=== PATIENT | male | born 1965 | race Caucasian/White ===

== ENCOUNTER 2019-02-02 09:56 | Emergency (ER) | payer OTHER ==
[2019-02-02 10:06] VITALS: BP 117/80; PULSE 67; RESP 16; TEMP 98
--- NOTE | 2019-02-02 10:33 | ED ---
General Adult HPI - General Chief complaint: Extremity Injury, Upper Stated complaint: left arm numbness Time Seen by Provider: 02/02/19 10:12 Source: patient, RN notes reviewed, old records reviewed Mode of arrival: ambulatory Limitations: no limitations - History of Present Illness Initial comments: 54-year-old male patient presents ED chief complaint of left arm paresthesias. Patient reports that for approximately 3 months he has had pain in his left shoulder region. 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 Patient force that he has been following up with a chiropractor who believed that they're improving the shoulder. Patient ports that he has pain at baseline. Patient reports that he has difficulty with overhead left arm movements and must use his right arm to help make that his left arm due to pain in his shoulder. Patient presented to Hospital today because while in shower he began to have paresthesias down his left arm. Patient reports a still has gross sensation. Patient denies any facial droop, denies any unilateral weakness. Patient denies any headache or changes in vision chest pain or shortness of breath. Patient states that the only new symptom is experiencing is the numbness and tingling in his left arm. Systemic: Pt denies fatigue, fever/chills, rash. Pt denies weakness, night sweats, weight loss. Neuro: Pt denies headache, visual disturbances, syncope or pre-syncope. HEENT: Pt denies ocular discharge or irritation, otalgia, rhinorrhea, pharyngitis or notable lymphadenopathy. Cardiopulmonary: Pt denies chest pain, SOB, heart palpitations, dyspnea on exertion. Abdominal/GI: Pt denies abdominal pain, n/v/d. : Pt denies dysuria, burning w/ urination, frequency/urgency. Denies new onset urinary or bowel incontinence. MSK: Pt denies myalgia, loss of strength or function in extremities. Neuro: Pt denies new onset weakness,. - Related Data Home Medications Medication Instructions Recorded Confirmed Aspirin/Acetaminophen/Caffeine 1 tab PO ONCE 02/02/19 02/02/19 [Excedrin Migraine Caplet] Cetirizine HCl [Zyrtec] 10 mg PO DAILY 02/02/19 02/02/19 Lisinopril [Zestril] 10 mg PO DAILY 02/02/19 02/02/19 rOPINIRole HCL 0.5 mg PO HS PRN 02/02/19 02/02/19 Allergies Allergy/AdvReac Type Severity Reaction Status Date / Time No Known Allergies Allergy Verified 02/02/19 10:25 Review of Systems ROS Statement: Those systems with pertinent positive or pertinent negative responses have been documented in the HPI. ROS Other: All systems not noted in ROS Statement are negative. Past Medical History Past Medical History: Hypertension History of Any Multi-Drug Resistant Organisms: None Reported Past Surgical History: Hernia Repair Past Psychological History: No Psychological Hx Reported Smoking Status: Never smoker Past Alcohol Use History: None Reported Past Drug Use History: None Reported General Exam - General Exam Comments Initial Comments: Constitutional: NAD, AOX3, Pt has pleasant affect. HEENT: NC/AT, trachea midline, neck supple, no lymphadenopathy. Posterior pharynx non erythematous, without exudates. External ears appear normal, without discharge. Mucous membranes moist. Eyes PERRLA, EOM intact. There is no scleral icterus. No pallor noted. Cardiopulmonary: RRR, no murmurs, rubs or gallops, no JVD noted. Lungs CTAB in anterior and posterior vallecillo. No peripheral edema. Abdominal exam: Abdomen soft and non-distended. Abdomen non-tender to palpation in all 4 quadrants. Bowel sounds active in LLQ. No hepatosplenomegaly. No ecchymosis Neuro: CN II-XII intact. No nuchal rigidity. No raccon eyes, no rubio sign, no hemotympanum. No cervical spinal tenderness. NIH 0. MSK: Painful arc positive, he can test positive left arm. Sensation intact left arm. Pulses intact. Pulses intact with overhead arm movement. Shoulder nontender to palpation.. No skin changes. No posterior calf tenderness bilaterally, homans sign negative bilaterally. Posterior tibialis and radial pulse +2 bilaterally. Sensation intact in upper and lower extremities. Full active ROM in upper and lower extremities, 5/5 stregnth. Limitations: no limitations Course Vital Signs 02/02/19 10:01 Temperature 98.0 F Pulse Rate 67 Respiratory 16 Rate Blood Pressure 117/80 O2 Sat by Pulse 99 Oximetry Medical Decision Making - Medical Decision Making 54-year-old male patient presents ED chief complaint of left arm paresthesias. Patient reports that for approximately 3 months he has had pain in his left shoulder region. 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 Patient force that he has been following up with a chiropractor who believed that they're improving the shoulder. Patient ports that he has pain at baseline. Patient reports that he has difficulty with overhead left arm movements and must use his right arm to help make that his left arm due to pain in his shoulder. Patient presented to Hospital today because while in shower he began to have paresthesias down his left arm. Patient reports a still has gross sensation. Patient denies any fa cial droop, denies any unilateral weakness. Patient denies any headache or changes in vision chest pain or shortness of breath. Patient states that the only new symptom is experiencing is the numbness and tingling in his left arm. Patient also in several, afebrile. Physical exam displayed: Painful arc positive, he can test positive left arm. Sensation intact left arm. Pulses intact. Pulses intact with overhead arm movement. No skin changes. Plain film left shoulder displayed no acute fracture dislocation. [id number] narrowing acromioclavicular joint. Patient discharged orthopedic follow-up. Case discussed with Dr. Salmon. Disposition Clinical Impression: Shoulder pain, Arthropathy Disposition: HOME SELF-CARE Condition: Stable Instructions (If sedation given, give patient instructions): Shoulder Sprain (ED) Additional Instructions: Patient to adhere to previously discussed treatment plan and will take medication(s) as directed. Patient to follow up with PCP in 1-2 days. Patient to return to ED if symptoms do not improve. Follow up with orthopedic surgeon today, return to ER if condition worsens. Is patient prescribed a controlled substance at d/c from ED?: No Referrals: Blane Penaloza MD [Primary Care Provider] - 1-2 days Liban Lopez DO [Doctor of Osteopathic Medicine] - 1-2 days
--- NOTE | 2019-02-02 10:36 | XR ---
EXAMINATION TYPE: XR shoulder complete LT DATE OF EXAM: 02/02/2019 CLINICAL HISTORY: Loss of strength after acute onset numbness per patient. Pain per ER order. TECHNIQUE: Three views of the left shoulder are obtained. COMPARISON: None. FINDINGS: There is no acute fracture/dislocation evident in the left shoulder. Mild to moderate narr owing most prominent in inferior aspect of the acromioclavicular joint. Glenohumeral joint is maintai pankaj. No significant spurring. Type II downsloping acromion is present. The visualized ribs are intac t and unremarkable. IMPRESSION: As above.
== END 2019-02-02 11:12 | disposition home or self-care (01) ==
LOC: EC 09:56
DX: M12.812 Other specific arthropathies, not elsewhere classified, left shoulder (principal); I10 Essential (primary) hypertension; Z79.82 Long term (current) use of aspirin; Z79.899 Other long term (current) drug therapy
CPT/HCPCS: 99284

== ENCOUNTER → 2019-02-06 | Outpatient (CLI) | payer OTHER ==
--- NOTE | 2019-02-06 14:48 | XR ---
Orbits for foreign body HISTORY: MRI clearance, history of metal in eyes 3 views of the orbits No radiopaque foreign body present within the orbits. Bone mineralization is normal. Paranasal sinuse s are well aerated. IMPRESSION: No radiographic foreign body evident within the orbits.
== END | disposition home or self-care (01) ==
LOC: RADXRMAIN 10:50
PROVIDERS: ATTEND Orthopaedic Surgery
DX: Z01.818 Encounter for other preprocedural examination (principal); Z87.821 Personal history of retained foreign body fully removed
CPT/HCPCS: 70030

== ENCOUNTER → 2023-03-23 | Outpatient (CLI) | payer OTHER ==
[2023-03-23 16:17] LABS: Basophils # (A) 0.03 X 10*3/uL (0.00-0.10); Basophils % (A) 0.5 %; Eosinophils # (A) 0.09 X 10*3/uL (0.04-0.35); Eosinophils % (A) 1.6 %; HCT 40.3 % (39.6-50.0); HGB 13.6 d/dL (13.0-17.0); Lymphocytes # (A) 1.48 X 10*3/uL (0.90-5.00); Lymphocytes % (A) 26.6 %; MCH 31.6 pg (27.0-32.0); MCHC 33.7 d/dL (32.0-37.0); MCV 93.7 FL (80.0-97.0); Mean Platelet Volume 10.2 FL (9.5-12.2); Monocytes # (A) 0.58 X 10*3/uL (0.20-1.00); Monocytes % (A) 10.4 %; NRBC Per 100 WBC 0 X 10*3/uL (0.00-0.01); Neutrophils # (A) 3.37 X 10*3/uL (1.80-7.70); Neutrophils % (A) 60.5 %; Platelet Count 364 X 10*3/uL (140-440); RDW 12.2 % (11.5-14.5); WBC 5.57 X 10*3/uL (4.50-10.00)
[2023-03-23 16:38] LABS: ALT 26 U/L (10-49); AST 19 U/L (14-35); Albumin 4.4 d/dL (3.8-4.9); Albumin/Globulin Ratio 1.83 Ratio (1.60-3.17); Alkaline Phosphatase 62 U/L (41-126); Calcium 9.7 mg/dL (8.7-10.3); Carbon Dioxide 26.6 mmol/L (21.6-31.8); Chloride 102 mmol/L (96-109); Globulin 2.4 d/dL (1.6-3.3); Glucose 101 mg/dL (70-110); LDL Cholesterol,Calculated 100.9 mg/dL (0.0-131.0); Potassium 3.9 mmol/L (3.5-5.5); Sodium 141 mmol/L (135-145); Total Bilirubin 0.6 mg/dL (0.3-1.2); Total Protein 6.8 d/dL (6.2-8.2); VLDL Calculation 15.64 mg/dL (5.00-40.00)
[2023-03-23 16:39] LABS: PSA Annual Screen 0.999 ng/mL (0.000-4.000)
== END | disposition home or self-care (01) ==
LOC: LABWHC1 08:56
PROVIDERS: ATTEND Family Medicine
DX: Z00.00 Encounter for general adult medical examination without abnormal findings (principal); Z12.5 Encounter for screening for malignant neoplasm of prostate
CPT/HCPCS: 80061; 80053; 85025; 82306; 36415; G0103

== ENCOUNTER 2024-05-04 02:36 | Emergency (ER) | payer OTHER ==
[2024-05-04 02:43] VITALS: TEMP 97.8
--- NOTE | 2024-05-04 02:51 | ED ---
General Adult HPI - General Chief complaint: Fall Stated complaint: Fall Time Seen by Provider: 05/04/24 02:51 Source: patient, EMS Mode of arrival: EMS Limitations: no limitations - History of Present Illness Initial comments: Sid is a pleasant 59 yo man who presents to the ER via ambulance for evaluation of back pain and left ankle pain. Patient reports he has dealt with intermittent back pain for a number of years he follows with a chiropractor however for the past 3 to 4 days he has had more severe pain and has shooting pain that radiates down the left leg causes his leg to kind to give out from under him. Patient states that he saw chiropractor he was resting Tuesday he was doing well but when he went to stand up had severe pain in his left leg gave out from under him when he fell to the ground resulting in injury to his left ankle. Patient states his foot was completely twisted and he knows something must be broken. Patient's placed his foot in a walking boot for stabilization and he was brought to the ER by ambulance. Patient denies any recent falls or injury prior to this fall. Denies any heavy lifting or injury that would have caused the acute worsening of his back pain. No fever no constitutional symptoms, no loss of bowel or bladder continence no retention. No IV drug use. - Related Data Home Medications Medication Instructions Recorded Confirmed Aspirin/Acetaminophen/Caffeine 1 tab PO ONCE 02/02/19 02/02/19 [Excedrin Migraine Caplet] Cetirizine HCl [Zyrtec] 10 mg PO DAILY 02/02/19 02/02/19 lisinopriL [Zestril] 10 mg PO DAILY 02/02/19 02/02/19 rOPINIRole HCL 0.5 mg PO HS PRN 02/02/19 02/02/19 Previous Rx's Medication Instructions Recorded HYDROcodone/APAP 5-325MG [Sultana 1 tab PO Q6HR PRN #20 tab 05/04/24 5-325] Sennosides/Docusate Sodium [Senna 1 each PO BID #30 capsule 05/04/24 Plus 8.6-50 mg Softgel] Allergies Allergy/AdvReac Type Severity Reaction Status Date / Time No Known Allergies Allergy Verified 05/04/24 02:37 Review of Systems ROS Statement: Those systems with pertinent positive or pertinent negative responses have been documented in the HPI. ROS Other: All systems not noted in ROS Statement are negative. Past Medical History Past Medical History: Hypertension History of Any Multi-Drug Resistant Organisms: None Reported Past Surgical History: Hernia Repair Past Psychological History: No Psychological Hx Reported Smoking Status: Unknown if ever smoked Past Alcohol Use History: None Reported Past Drug Use History: None Reported General Exam - General Exam Comments Initial Comments: Physical Exam GENERAL: Patient is well-developed and well-nourished. Patient is nontoxic and well-hydrated and is in no distress. HENT: Normocephalic, Atraumatic. EYES: PERRL, EOMI PULMONARY: Unlabored respirations. CARDIOVASCULAR: RRR Warm and well perfused extremities ABDOMEN: Non-distended SKIN: No rashes or bruising : Deferred NEUROLOGIC: Alert and oriented Normal speech MUSCULOSKELETAL: Swelling but no deformity of the left ankle, range of motion of the ankle limited by pain PSYCHIATRIC: No SI/HI Limitations: no limitations Course Vital Signs 05/04/24 05/04/24 02:37 05:42 Temperature 97.8 F 97.8 F Pulse Rate 61 74 Respiratory 16 17 Rate Blood Pressure 106/67 110/71 O2 Sat by Pulse 98 99 Oximetry Medical Decision Making - Medical Decision Making Was pt. sent in by a medical professional or institution (, PA, TRUST VAULT CUSTODIAN, urgent care, hospital, or fdc...) When possible be specific @ -No Did you speak to anyone other than the patient for history (EMS, parent, family, police, friend...)? What history was obtained from this source @ - Did you review nursing and triage notes (agree or disagree)? Why? @ -I reviewed and agree with nursing and triage notes Were old charts reviewed (outside hosp., previous admission, EMS record, old EKG, old radiological studies, urgent care reports/EKG's, fdc records)? Report findings @ -No old charts were reviewed Differential Diagnosis (chest pain, altered mental status, abdominal pain women, abdominal pain men, vaginal bleeding, weakness, fever, dyspnea, syncope, headache, dizziness, GI bleed, back pain, seizure, CVA, palpatations, mental health)? @ -Differential Back Pain: Strain, zoster, cauda equina syndrome, epidural abscess, vertebral osteomyelitis, discitis, fracture, subluxation, disc herniation, DJD, spinal stenosis, dissection, AAA, pancreatitis, peptic ulcer disease, pyelonephritis, kidney stone, this is not meant to be an all-inclusive list. EKG interpreted by me (3pts min.). @ -As above X-rays interpreted by me (1pt min.). @ -Distal fibula fracture no obvious dislocation CT interpreted by me (1pt min.). @ -No obvious fractures in the lumbar spine U/S interpreted by me (1pt. min.). @ -None done What testing was considered but not performed or refused? (CT, X-rays, U/S, labs)? Why? @ -None What meds were considered but not given or refused? Why? @ -None Did you discuss the management of the patient with other professionals (professionals i.e. , PA, TRUST VAULT CUSTODIAN, lab, RT, psych nurse, social services, marble installer, teacher, tactical deception plans officer, piano case and bench assembler)? Give summary @ -No Was smoking cessation discussed for >3mins.? @ -No Was critical care preformed (if so, how long)? @ -No Were there social determinants of health that impacted care today? How? (Homele ssness, low income, unemployed, alcoholism, drug addiction, transportation, low edu. Level, literacy, decrease access to med. care, shelter, rehab)? @ -No Was there de-escalation of care discussed even if they declined (Discuss DNR or withdrawal of care, Hospice)? DNR status @ -No What co-morbidities impacted this encounter? (DM, HTN, Smoking, COPD, CAD, Cancer, CVA, ARF, Chemo, Hep., AIDS, mental health diagnosis, sleep apnea, morbid obesity)? @ -None Was patient admitted / discharged? Hospital course, mention meds given and route, prescriptions, significant lab abnormalities, going to OR and other pertinent info. @ -Discharged Patient was seen and evaluated, history is obtained from the patient. Physical exam reveals a grossly swollen left ankle, given patient's history of back pain with sciatic like symptoms CT scan of the spine and x-ray of the ankle were ordered. CT scan shows some disc protrusion at L5-S1. There is no acute findings that would require surgical intervention. Patient will be referred to spine surgery for follow-up. X-ray confirms a lateral malleoli are fracture. Discussed with patient options for splinting and a fiberglass splint versus using the boot that they have patient and would prefer the boot so this was placed back on the patient. He was treated with morphine for pain in the ER and discharged home with prescription for Sultana and referral to orthopedics. Undiagnosed new problem with uncertain prognosis? @ -No Drug Therapy requiring intensive monitoring for toxicity (Heparin, Nitro, Insulin, Cardizem)? @ -No Were any procedures done? @ -No Diagnosis/symptom? @ -Left ankle fracture, Acute, or Chronic, or Acute on Chronic? @ -Acute Uncomplicated (without systemic symptoms) or Complicated (systemic symptoms)? @ -Uncomplicated Side effects of treatment? @ -No Exacerbation, Progression, or Severe Exacerbation? @ -No Poses a threat to life or bodily function? How? (Chest pain, USA, NC, pneumonia, PE, COPD, DKA, ARF, appy, cholecystitis, CVA, Diverticulitis, Homicidal, Suicidal, threat to staff... and all critical care pts) @ -No Disposition Clinical Impression: Fracture of distal fibula Disposition: HOME SELF-CARE Condition: Stable Prescriptions: HYDROcodone/APAP 5-325MG [Sultana 5-325] 1 tab PO Q6HR PRN #20 tab PRN Reason: Pain Sennosides/Docusate Sodium [Senna Plus 8.6-50 mg Softgel] 1 each PO BID #30 capsule Is patient prescribed a controlled substance at d/c from ED?: No Referrals: None,Stated [REFERRING] - 1-2 days Gerhard Perez MD [STAFF PHYSICIAN] - 1-2 days Vega Stiles DO [Doctor of Osteopathic Medicine] - 1-2 days
[2024-05-04] MEDS: MORPHINE SULFATE 4 MG/ML SYRINGE IVP STA ×2 (03:29→05:18)
[2024-05-04] MEDS: ONDANSETRON 4 MG/2 ML VIAL IVP STA (03:30)
--- NOTE | 2024-05-04 03:58 | CT ---
EXAMINATION TYPE: CT lumbar spine wo con DATE OF EXAM: 05/04/2024 3:51 AM COMPARISON: None. CLINICAL INDICATION: Male, 59 years old with history of fall; [facility], Pt to ED via EMS after pt has sync opal episode after having a BM pt stood up from toilet and felt dizzy and fall onto ground, pt does r emember entire episode; no LOC, pt did not hit head, no blood thinners, pt reports he hit L ankle on side of toilet and pt endorses lower back pain but states that has not changed from pts back pain timothy t pt has been dealing with for the last few days. TECHNIQUE: Unenhanced CT of the lumbar spine was performed. Bone and soft tissue window settings are submitted as well as coronal and sagittal reconstructions. CT DLP: 675.[address] CTDI: 19 mGy Automated exposure control for dose reduction was used. FINDINGS: There are 5 lumbar type vertebra. Bilateral pars defect L5 level with grade 1 anterolisthes is L5 on S1 measured 7 mm lung posterior vertebral body margin. Moderate disc space narrowing at L5-S 1 level. Vertebral body heights disc space heights otherwise are maintained. No acute displaced fract ure in the lumbar spine. Limbus vertebrae anterior superior L4 level is seen. Spinal canal grossly pr eserved. Review of axial images shows no additional suspicious abnormality. Simple parapelvic cyst mid to lowe r pole level of the left kidney centrally are felt present. IMPRESSION: No acute displaced fracture in the lumbar spine. Bilateral pars defects with spondylolisthesis at the lumbosacral junction noted. [facility], , 05/04/2024 3:55 AM
--- NOTE | 2024-05-04 04:00 | XR ---
EXAMINATION TYPE: XR ankle complete LT DATE OF EXAM: 05/04/2024 3:55 AM COMPARISON: None. CLINICAL INDICATION: Male, 59 years old with history of fall, pain TECHNIQUE: Frontal, lateral and oblique images of the left ankle are obtained. FINDINGS: There is acute slightly displaced comminuted fracture through the lateral malleolus with m ild to moderate associated soft tissue swelling. Medial malleolus is intact. Ankle mortise symmetry i s preserved. IMPRESSION: As above. [facility], , 05/04/2024 3:58 AM
[2024-05-04] MEDS: ACET/COD 300 MG/30 MG STARTER PACK 6 TAB BTL PO STA (05:19)
[2024-05-04 05:43] VITALS: BP 110/71; PULSE 74; RESP 17
== END 2024-05-04 05:42 | disposition home or self-care (01) ==
LOC: EC 02:36
DX: S82.402A Unspecified fracture of shaft of left fibula, initial encounter for closed fracture (principal); W19.XXXA Unspecified fall, initial encounter
CPT/HCPCS: 73610; 72131; 99284; 96374; 96375; 96376; J2270; J2405

== ENCOUNTER → 2024-05-14 | Day surgery (SDC) | payer OTHER ==
[2024-05-11 10:54] VITALS: BMI 28.5
[~2024-05-14] MED LIST: HYDROmorphone (PF) 1 MG/ML ONE; HYDROmorphone 0.5 MG/0.5 ML SYRINGE IVP PRN; LIDOCAINE 1% (10MG/ML) FOR IV START INTRADERMA PRN; LIDOCAINE 1% INJ 10MG/ML (20 ML MDV) ONE; MIDAZOLAM 2 MG/2 ML VIAL ONE; PHENYLEPHRINE-0.9% NACL SYG 1,000 MCG/10 ML SYRINGE ONE; PROPOFOL 10 MG/ML 20 ML VIAL IV ONE; ROPIVACAINE 5 MG/ML 30 ML VIAL ONE; SODIUM CHLORIDE 0.9% (PF) 10 ML VIAL ONE; WATER FOR INJECTION, STERILE 10 ML VIAL IV ONE; droPERidol 5 MG/2 ML VIAL IVP ONE; ePHEDrine 50 MG/ML 1 ML VIAL ONE; fentaNYL (PF) 50 MCG/ML 2 ML AMP ONE
[2024-05-14] MEDS: IV FLUID CONTINUATION 1,000 ML IV ONE (14:53)
[2024-05-14] MEDS: DEXAMETHASONE SOD PHOSPHATE 4 MG/ML 1 ML VIAL IV ONE (15:29)
[2024-05-14] MEDS: ONDANSETRON 4 MG/2 ML VIAL IVP ONE (15:29)
[2024-05-14] MEDS: LACTATED RINGERS 1,000 ML IV SCH (15:30)
[2024-05-14] MEDS: MIDAZOLAM 2 MG/2 ML VIAL IV ONE (15:48)
--- NOTE | 2024-05-14 17:39 | P.ANPRN ---
Procedure Note - Anesthesia - Nerve Block Performed Left Popliteal Single Time Out Performed: Yes (1548) Date of Procedure: 05/14/24 Procedure Start Time: 15:49 Procedure Stop Time: 15:53 Location of Patient: PreOp Indication: Acute Post-Operative Pain, Requested by Surgeon Specifically requested for management of pain by DrBrayan: Edu Yarbrough Sedation Type: Sedate with meaningful contact maintained Preparation: Sterile Prep Position: Supine Catheter: None Needle Types: Pajunk Needle Gauge: 21 Ultrasound used to visualize needle placement: Yes Ultrasound used to observe medication spread: Yes Injectate: 0.5% Ropivacaine (see comment for volume) (15cc+10cc nacl pf) Blood Aspirated: No Pain Paresthesia on Injection Noted: No Resistance on Injection: Normal Image Stored and Saved: Yes Events: Uneventful and Well Tolerated
--- NOTE | 2024-05-14 17:40 | P.ANPRN ---
Procedure Note - Anesthesia - Nerve Block Performed Left Adductor Canal Single Time Out Performed: Yes (1548) Date of Procedure: 05/14/24 Procedure Start Time: 15:54 Procedure Stop Time: 15:57 Location of Patient: PreOp Indication: Acute Post-Operative Pain, Requested by Surgeon Specifically requested for management of pain by DrBrayan: Edu Yarbrough Sedation Type: Sedate with meaningful contact maintained Preparation: Sterile Prep Position: Supine Catheter: None Needle Types: Pajunk Needle Gauge: 21 Ultrasound used to visualize needle placement: Yes Ultrasound used to observe medication spread: Yes Injectate: 0.5% Ropivacaine (see comment for volume) (15cc+10cc nacl pf) Blood Aspirated: No Pain Paresthesia on Injection Noted: No Resistance on Injection: Normal Image Stored and Saved: Yes Events: Uneventful and Well Tolerated
[2024-05-14] MEDS: LACTATED RINGERS 1,000 ML IV ONE (17:50)
[2024-05-14] MEDS: ALBUTEROL NEBULIZED 2.5 MG/3 ML INHALATION STA (18:52)
--- NOTE | 2024-05-14 18:54 | P.OP ---
Date of Procedure: 05/14/24 Preoperative Diagnosis: Maisonneuve variant ankle fracture-dislocation Postoperative Diagnosis: Same Procedure(s) Performed: 1. Open reduction and internal fixation left lateral malleolus 2. Open reduction and internal fixation left ankle syndesmosis 3. Nonoperative management of left proximal fibula and posterior malleolus fracture 4. Manual application of joint stress for radiography by physician, left ankle 5. Application of short leg splint by physician, left ankle Anesthesia: YOUNG, regional Surgeon: Edu Yarbrough Cold Work Operator #1: Sp Dutton Estimated Blood Loss (ml): 25 IV fluids (ml): 800 Pathology: none sent Condition: stable Disposition: PACU Indications for Procedure: the patient is a very pleasant relatively healthy 59-year-old male who presented to my office with a left ankle injury. His x-rays showed a proximal fibula fracture, possible lateral malleolus fracture, posterior malleolus fracture and medial malleolus avulsion injury. Based on his injury films and x-rays in the office I recommended open reduction internal fixation. We discussed the potential risks and complications of ankle fracture surgery at length. Risks discussed included but are not limited to risks from anesthesia, superficial infection, deep infection, nonunion, malunion, malreduction of the ankle mortise or syndesmosis, damage to local blood vessels or nerves particularly branches of the superficial peroneal nerve, saphenous nerve, and or sural nerve, hardware failure, loss of reduction of the ankle mortise or syndesmosis due to hardware failure, symptomatic hardware, delayed wound healing, wound necrosis, po sttraumatic ankle arthritis, stiffness, instability, intra-articular pathology requiring further treatment, need for further surgery, an inability to regain preinjury level of function, dissatisfaction with surgical outcome, DVT, PE, pressure sore, splint complications, and possibly loss of life or limb. The patient understands that while these are the most common complications there are other less common complications possible. They provided their verbal and written consent to go forward with ankle open reduction and internal fixation. All of their questions regarding the procedure and potential complications were answered. Operative Findings: the patient had a displaced Guerrero B fibula fracture requiring open reduction internal fixation. Manual external rotation stress x-ray showed widening of the medial clear space. Description of Procedure: the patient was identified in preoperative holding and the correct left ankle was marked with my initials. I reviewed the consent form with the patient and his . All of their questions were answered. The patient was given a block by anesthesia. He was then brought back to the operating room. He was transferred onto the or table where general anesthetic and preoperative antibiotics were given. A tourniquet was applied to the proximal aspect of the left leg. A bump was placed under the left side of his body internally rotating the leg to neutral. The contralateral right leg was secured to the table with foam and tape. A ramp was placed under the left leg to facilitate imaging. A nonsterile occlusive drape was applied over the left leg. The left arm was draped over the body and secured with a pillow. A presurgical scrub was performed with a chlorhexidine scrub brush. At this point a timeout was performed identifying the correct patient, operative extremity, and procedure. C-arm was brought in and a manual external rotation stress x-ray showed obvious widening of the medial clear space. I interpreted this as a grossly unstable ankle fracture requiring surgery. The patient's left leg was then prepped and draped in the standard sterile fashion. The leg was then elevated, exsanguinated with an Esmarch bandage, and the tourniquet was inflated to 250 mmHg. I began by making a straight lateral incision to the fibula. Skin incision was made with a scalpel and dissection was carried down carefully with subcutaneous dissection using scissors. The superficial peroneal nerve was identified proximally in the incision carefully retracted. The periosteum and fascia over the peroneal muscles and fibula was sharply elevated. A displaced fibular fracture was then identified. The fracture was exposed and gently debrided to allow reduction. Once the fracture was fully visualized and debrided a reduction was performed using a combination of longitudinal traction and rotation followed by reduction and manipulation of the fracture with a [id number] reduction clamp. The fracture keyed in was anatomically reduced visually. Fluoroscopy verified the reduction. A 2.7 mm lag screw was then placed from anterior to posterior across the fracture generating excellent compression. The reduction clamp was removed and the fracture maintained its reduction. A precontoured fibular plate was then placed over the lateral aspect of the fibula and fluoroscopy was used to assess the length of the plate and position. The plate was then secured to the fibula with nonlocking 3.5 mm screws proximally and distally. The position of the plate was verified. An additional 2 nonlocking 3.5 mm screws were placed proximally followed by 2 locking screws distally. The syndesmosis and medial clear space was still unstable so to syndesmotic tight rope devices were placed. A counterincision was made medially to allow direct placement of the suture bonds against the tibia. Both tight ropes were placed under fluoroscopic guidance and sequentially tightened to reduce the syndesmosis. The tight ropes were then tied laterally and cut. Final fluoroscopic x-rays showed anatomic reduction of both the fibula fracture and ankle mortise. A manual external rotation stress x-ray showed no widening of the medial clear space. A true lateral was taken showing the talus concentrically reduced under the tibia. Both wounds were then thoroughly irrigated and closed in layers. I verified that all instrument, sponge, and sharp counts were correct. A sterile dressing consisting of Betadine soaked Adaptic, 4 x 4, and web roll was applied. A very well-padded bulky Craig splint was placed with the ankle at neutral. The patient was then awoken from his anesthetic, transferred from the OR table to a gurney, and brought to recovery having tolerated the procedure well. Sp Dutton PAC was required as a skilled pediatric physician assistant due to the complexity of surgery for patient positioning, draping, exposure, reduction of fracture, closure of wound and application of splint. PLAN: The patient is going to discharge home as an outpatient if he is comfortable. Strict NWB on the left leg. Crutches to ambulate. Pain medication and a stool softener will be sent to his pharmacy. Aspirin 81 mg BID for DVT prophylaxis. Follow-up in the office in 10-14 days for splint removal, wound check and NWB x-rays of the ankle (Mortise and lateral) and knee (AP and lateral ).
[2024-05-14 19:00] VITALS: TEMP 97
[2024-05-14 19:55] VITALS: BP 119/63; PULSE 101; RESP 16
--- NOTE | 2024-05-14 20:08 | XR ---
Intraoperative/procedural fluoroscopic services were provided for left ankle ORIF. Fixation plate ankur ntified involving the distal fibula with screws. Total fluoroscopy time is 58.8 seconds with a total of 6 submitted images to PACS. Total DAP 0.4465 Gycm2. Please see the operative note for further det ails. [facility], , 05/14/2024 8:05 PM
== END | disposition home or self-care (01) ==
LOC: OR 14:20
PROVIDERS: ATTEND Orthopaedic Surgery
DX: S82.862A Displaced Maisonneuve's fracture of left leg, initial encounter for closed fracture (principal); I10 Essential (primary) hypertension; J45.909 Unspecified asthma, uncomplicated; F17.200 Nicotine dependence, unspecified, uncomplicated; Z91.81 History of falling; Z79.899 Other long term (current) drug therapy; X58.XXXA Exposure to other specified factors, initial encounter
CPT/HCPCS: 27829; 64447; 64445; 73610; C1713; J2250; J1100; J0690; J2405; J2003; J3010; J1171; J2795; J2704; J2371